=== PATIENT | male | born 1960 | race Caucasian/White ===

== ENCOUNTER 2020-12-13 14:48 | Emergency (ER) | payer OTHER ==
[~2020-12-13] VITALS: Ht 162.6 cm; Wt 90.7 kg
[~2020-12-13 14:48] MED LIST: BACTRIM DS TAB1 EACH PO; GI COCKTAIL PO; IBUPROFEN800 MG PO; KEFLEX500 MG PO; TORADOL 10 MG T10 MG PO
[2020-12-13 16:11] LABS: HEMOGLOBIN 15.6 gm/dl (14.0-17.5); RED BLOOD COUNT 4.92 M/UL (4.20-5.50)
== END 2020-12-14 00:03 | disposition home or self-care (01) ==
LOC: ER1 14:48
PROVIDERS: Physician Assistant
DX: U07.1 COVID-19 (principal); I10 Essential (primary) hypertension; Z90.49 Acquired absence of other specified parts of digestive tract
CPT/HCPCS: 71045; 80053; 85025; 99284; U0002

== ENCOUNTER → 2021-12-02 | Outpatient (CLI) | payer OTHER ==
[~2021-12-02] MED LIST changes: +CELEBREX100 MG PO; +HYDROCHLOROTHIA25 MG PO; +MELOXICAM15 MG PO; +OMEPRAZOLE20 MG PO; +VALSARTAN40 MG PO
[2021-12-02 12:13] LABS: HEMOGLOBIN 15.7 gm/dl (14.0-17.5); RED BLOOD COUNT 4.73 M/UL (4.20-5.50); WHITE BLOOD COUNT 8.5 K/UL (4.5-11.0)
[2021-12-02 12:58] LABS: BUN/CREATININE RATIO 26 (0-10)
== END ==
LOC: OPSV2 10:00 → EDSTATUS 10:00 → OPSV2 10:27
PROVIDERS: Orthopaedic Surgery
DX: Z01.818 Encounter for other preprocedural examination (principal); M54.12 Radiculopathy, cervical region
CPT/HCPCS: 36415; 71046; 80048; 81001; 85027; 85610; 85730; 87081; 93005

== ENCOUNTER → 2021-12-04 | Outpatient (CLI) | payer OTHER | LOC: KOH-I 09:26 | DX: M50.122 Cervical disc disorder at C5-C6 level with radiculopathy (principal) | CPT/HCPCS: 72125 ==

== ENCOUNTER → 2021-12-15 | Outpatient (CLI) | payer OTHER ==
[~2021-12-15] MED LIST changes: +ROXICODONE TAB 55 MG PO
== END ==
LOC: LAB 12:31
PROVIDERS: Orthopaedic Surgery
DX: Z01.812 Encounter for preprocedural laboratory examination (principal)
CPT/HCPCS: 36415; 80048; 86850; 86900; 86901

== ENCOUNTER 2021-12-16 05:37 | Inpatient (IN) | payer OTHER ==
[~2021-12-16] VITALS: Ht 165.1 cm; Wt 88.5 kg
[~2021-12-16 05:37] MED LIST changes: -ROXICODONE TAB 55 MG PO
[2021-12-16 11:53] LABS: HEMOGLOBIN 14.9 gm/dl (14.0-17.5); RED BLOOD COUNT 4.5 M/UL (4.20-5.50); WHITE BLOOD COUNT 9.7 K/UL (4.5-11.0)
[2021-12-16 12:07] LABS: BUN/CREATININE RATIO 33 (0-10)
[2021-12-17 05:21] LABS: RED BLOOD COUNT 4.56 M/UL (4.20-5.50)
[2021-12-17 05:28] LABS: WHITE BLOOD COUNT 12.9 K/UL (4.5-11.0)
[2021-12-17 06:05] LABS: BUN/CREATININE RATIO 29 (0-10)
[2021-12-17] MEDS ORDERED: ROXICODONE TAB 55 MG PO (11:04)
== END 2021-12-17 17:05 | disposition home or self-care (01) | DRG 29 ==
LOC: OR 05:37 → CCU 12:20
PROVIDERS: ADMIT Orthopaedic Surgery
PROC: 4A11X4G Monitoring of Peripheral Nervous Electrical Activity, Intraoperative, External Approach (ICD-10-PCS; 2021-12-16)
PROC: 0RG10A0 Fusion of Cervical Vertebral Joint with Interbody Fusion Device, Anterior Approach, Anterior Column, Open Approach (ICD-10-PCS; principal; 2021-12-16 07:30)
PROC: 0RB30ZZ Excision of Cervical Vertebral Disc, Open Approach (ICD-10-PCS; 2021-12-16 07:30)
DX: M54.12 Radiculopathy, cervical region (principal); G95.89 Other specified diseases of spinal cord; Z20.822 Contact with and (suspected) exposure to COVID-19; K21.9 Gastro-esophageal reflux disease without esophagitis; I10 Essential (primary) hypertension; E78.5 Hyperlipidemia, unspecified; Z90.49 Acquired absence of other specified parts of digestive tract; Z88.8 Allergy status to other drugs, medicaments and biological substances
CPT/HCPCS: 36415; 72040; 76000; 80048; 85025; 85027; 97116; 97161; C1713; C1762; J0690; J1040; J1100; J1170; J1885; J2001; J2250; J2270; J2405; J2704; J3010; J3370; J7040